=== PATIENT | male | born 1965 | race Caucasian/White ===

== ENCOUNTER 2023-12-25 09:49 | Day surgery (SDC) | payer BC ==
[~2023-12-25] VITALS: Ht 175.3 cm; Wt 83.9 kg
[2023-12-25 14:01] VITALS: O2SAT 100
[2023-12-25] MEDS ORDERED: MIDAZOLAM HCL 2 MG/2 ML VIAL (VERSED) ONE (14:26)
[2023-12-25] MEDS ORDERED: fentaNYL CITRATE/PF 100 MCG/2 ML AMP ONE (14:26)
[2023-12-25] MEDS ORDERED: PROPOFOL 200MG/ 20ML VIAL (DIPRIVAN) IV ONE (14:55)
[2023-12-25] MEDS ORDERED: NS IRRIG SOLN 1000 ML IR ONE (14:55)
[2023-12-25] MEDS ORDERED: WATER FOR IRRIGATION,STERILE 1,000 ML IRRIG.SOLN IR ONE (14:55)
[2023-12-25] MEDS ORDERED: METOCLOPRAMIDE HCL 10 MG/2 ML VIAL ONE (14:55)
[2023-12-25] MEDS ORDERED: OXYMETAZOLINE HCL 0.05% NASAL SPRAY NS ONE (14:55)
[2023-12-25] MEDS ORDERED: LIDOCAINE/EPI 1% 1:100000 20 ML VIAL ONE (14:55)
[2023-12-25] MEDS ORDERED: MUPIROCIN 2% TOPICAL OINTMENT 22 GM ONE (14:55)
[2023-12-25] MEDS ORDERED: ROCURONIUM BROMIDE 10 MG/ML (ZEMURON) ONE (14:55)
[2023-12-25] MEDS ORDERED: LR 1,000 ML IV.SOLN IV ONE (14:55)
[2023-12-25] MEDS ORDERED: ONDANSETRON HCL 4 MG/2 ML VIAL ONE (14:55)
[2023-12-25] MEDS ORDERED: SEVOFLURANE 15 MIN GAS INH ONE (14:55)
[2023-12-25] MEDS ORDERED: NS 1000 ML IV.SOLN IV ONE (14:55)
[2023-12-25] MEDS ORDERED: LIDOCAINE 2%, 20 ML MDV ONE (14:55)
[2023-12-25] MEDS ORDERED: METOCLOPRAMIDE HCL 10 MG/2 ML VIAL IVP PRN (17:30)
[2023-12-25] MEDS ORDERED: LABETALOL 100 MG/ 20ML VIAL IVP PRN (17:30)
[2023-12-25] MEDS ORDERED: ePHEDrine sulfate 50 MG/ML VIAL IVP PRN (17:30)
[2023-12-25] MEDS ORDERED: ONDANSETRON HCL 4 MG/2 ML VIAL IVP PRN (17:30)
[2023-12-25] MEDS ORDERED: HYDROmorphone 1 MG/ML INJ. CARTRIDGE IVP PRN ×3 (17:30)
[2023-12-25] MEDS: ACETAMINOPHEN 500 MG TABLET ONE (18:28)
[2023-12-25 19:07] VITALS: BP_SYST 155; PULSE 68; RESP 17
== END 2023-12-25 19:28 | disposition home or self-care (01) ==
LOC: SDS 09:49 → SMU 09:53 → SDS 19:28
PROVIDERS: ATTEND Otolaryngology
DX: D38.5 Neoplasm of uncertain behavior of other respiratory organs (principal); B47.9 Mycetoma, unspecified; J34.89 Other specified disorders of nose and nasal sinuses; J34.2 Deviated nasal septum; I10 Essential (primary) hypertension; E11.49 Type 2 diabetes mellitus with other diabetic neurological complication; G47.33 Obstructive sleep apnea (adult) (pediatric); J32.0 Chronic maxillary sinusitis; Z79.84 Long term (current) use of oral hypoglycemic drugs; Z79.899 Other long term (current) drug therapy; Z91.013 Allergy to seafood; Z83.3 Family history of diabetes mellitus
CPT/HCPCS: 31255; 30520; 30140; 31256; 87070 ×2; 87075; 82948; 88304; 88305; 88311; J2001; J2765; J2250; J2405; J2704; J3010; J7120; J7030; C1726